=== PATIENT | male | born 1970 | race Caucasian/White ===

== ENCOUNTER 2016-04-11 15:23 | Emergency (ER) | payer MEDICAID ==
[2016-04-11 15:31] VITALS: BP 158/98; PULSE 79; RESP 14; TEMP 97.9; O2SAT 99
--- NOTE | 2016-04-11 15:52 | UCPHY ---
H & P Patient Type: New Smoking Status: Never smoked Time Seen by Provider: 04/11/16 15:28 HPI/ROS: CHIEF COMPLAINT: bit tongue HISTORY OF PRESENT ILLNESS: 45-year-old male presents complaining of a laceration to his tongue from biting it yesterday. Patient reports he has been rinsing his mouth with salt water. He reports the pain is controlled. He wants to make sure he does not need stitches. Tetanus is up-to-date. He denies other complaints. No tongue swelling, no difficulty swallowing. (Jesica Felton) Physical Exam: GEN: Awake, alert, oriented, no acute distress RESP: nl resp effort MSK: Normal appearing SKIN: 0.5cm superficial laceration/flap to front center top of tongue (Jesica Felton) Constitutional: Initial Vital Signs Temperature (C) 36.6 C 04/11/16 15:29 Heart Rate 79 04/11/16 15:29 Respiratory Rate 14 04/11/16 15:29 Blood Pressure 158/98 H 04/11/16 15:29 O2 Sat (%) 99 04/11/16 15:29 O2 Delivery Mode Room Air Allergies/Adverse Reactions: No Known Allergies Allergy (Verified 04/11/16 15:31) Home Medications: Medication Instructions Recorded NO HOME MEDS 10/19/09 MDM/Departure - MDM ED Course/Re-evaluation: [facility] supervision Physician documentation: The patient was evaluated and managed by the physician assistant professor of religion. My co- signature indicates that I have reviewed this chart and I agree with the findings and plan of care as documented. I am the secondary supervising physician. (Rian Jang) - Depart Clinical Impression: Laceration of tongue without complication Qualifiers: Encounter type: initial encounter Qualifier Code: (S01.512A) Laceration without foreign body of oral cavity, initial encounter Condition: Good Instructions: Acute Wound Care (ED) Additional Instructions: Salt water rinses 3 times a day. Eat soft foods for 3-5 days. Take 600 mg of ibuprofen every 8 hours with food for pain and swelling for 3-5 days. Return for any signs of infection, pain, drainage, redness or swelling, or any other questions or concerns. Referrals: NONE *PRIMARY CARE P,. [Primary Care Provider] - As per Instructions - PQRS PQRS Measurement: na (Jesica Felton L)
== END 2016-04-11 16:00 | disposition home or self-care (01) ==
LOC: CED 15:23
DX: S01.512A Laceration without foreign body of oral cavity, initial encounter (principal); X58.XXXA Exposure to other specified factors, initial encounter
CPT/HCPCS: 99203-PO; G0463-PO